=== PATIENT | female | born 1995 | race Caucasian/White ===

== ENCOUNTER 2017-01-27 21:30 | Inpatient (IN) | payer SELFPAY ==
[~2017-01-27] VITALS: Ht 165.1 cm; Wt 89.8 kg
[2017-01-27 21:38] VITALS: BP 150/90
--- NOTE | 2017-01-27 21:45 | NUR ---
PT TAKEN TO BED 8
[2017-01-27 22:05] LABS: BASOPHILS # (AUTO) 0.3 K/uL (0.00-0.22); BASOPHILS % (AUTO) 3.9 % (0.0-2.0); EOSINOPHILS # (AUTO) 0.1 K/uL (0-0.4); HEMOGLOBIN 13.7 g/dL (12.0-16.0); LYMPHOCYTES # (AUTO) 2.3 K/uL (2.5-16.5); LYMPHOCYTES % (AUTO) 32.3 % (20.5-51.1); MEAN CORPUSCULAR HEMOGLOBIN 30 pg (27-31); MEAN CORPUSCULAR HGB CONC 33 g/dL (33-37); MEAN CORPUSCULAR VOLUME 91 fL (80-94); MONOCYTES # (AUTO) 0.3 K/uL (0.8-1.0); MONOCYTES % (AUTO) 4.9 % (1.7-9.3); NEUTROPHILS % (AUTO) 56.9 % (42.2-75.2); PLATELET COUNT (AUTO) 290 K/uL (140-450); RED CELL DISTRIBUTION WIDTH 12.2 % (11.6-13.7)
--- NOTE | 2017-01-27 22:10 | NUR ---
21 YO FEMALE PATIENT PRESENTS TO ED WITH C/O SUICIDAL THOUGHTS. PT STATES HAS HAD SUICIDAL THOUGHTS FOR 1 WEEK . C/O N/V AND HEAD ACHE; SKIN IS PINK/WARM/DRY; AAOX4 WITH EVEN AND STEADY GAIT; LUNGS CLEAR BL; HR EVEN AND REGULAR; PATIENT STATES PAIN OF 8/10 AT THIS TIME; VSS; PATIENT POSITIONED FOR COMFORT; HOB ELEVATED; BEDRAILS UP X2; BED DOWN. SPOUSE AT BEDSIDE. ER MD MADE AWARE OF PT STATUS.
[2017-01-27 22:15] LABS: ANION GAP 14.1 (8-16); CALCIUM 8.3 mg/dL (8.5-10.1); CARBON DIOXIDE 26.5 mmol/L (21-32); CHLORIDE 104 mmol/L (98-107); CREATININE 0.7 mg/dL (0.6-1.3); GFR ARICAN-AMERICAN 133 mL/min (>90); GFR NON ARICAN-AMERICAN 110 mL/min (>90); GLUCOSE 76 mg/dL (74-106); POTASSIUM 3.6 mmol/L (3.5-5.1); SODIUM SERUM 141 mmol/L (136-145); UREA NITROGEN, BLOOD 11 mg/dL (7-18)
[2017-01-27 22:20] LABS: ALANINE AMINOTRANSFERASE 24 U/L (12-78); ALBUMIN 3.5 g/dL (3.4-5.0); ALCOHOL, BLOOD < 3 mg/dL (<3); ALKALINE PHOSPHATASE 64 U/L (46-116); ASPARTATE AMINOTRANSFERASE 18 U/L (15-37); TOTAL BILIRUBIN 0.3 mg/dL (0.0-1.0)
[2017-01-27 22:20] LABS: AMPHETAMINE, URINE NEG. ng/ml (NEG <=1000); BARBITURATE, URINE NEG. ng/ml (NEG <=200); BENZODIAZEPINE, URINE NEG. ng/mL (NEG <=200); CANNABINOID, URINE NEG. ng/mL (NEG <=50); COCAINE, URINE NEG. ng/mL (NEG <=300); OPIATE, URINE NEG. ng/mL (NEG <=2000); PHENCYCLIDINE SCREEN,URINE NEG. ng/mL (NEG <=25)
[2017-01-27 22:21] LABS: ACETAMINOPHEN < 0.5 ug/ml (10-30); SALICYLATE < 2.8 mg/dL (2.8-20.0)
--- NOTE | 2017-01-27 22:25 | NUR ---
[facility] AT BEDSIDE FOR 5150 EVAL
--- NOTE | 2017-01-27 22:50 | NUR ---
PT PLACED ON 5150 HOLD BY [place] [employer] OFFICER MICHAELLE
[2017-01-27] MEDS ORDERED: ACETAMINOPHEN EXTRA STRENGTH 500 MG TAB PO ONE (23:00)
[2017-01-28] MEDS ORDERED: ACETAMINOPHEN 325 MG TAB PO PRN (00:05)
[2017-01-28] MEDS ORDERED: ONDANSETRON 4 MG/2 ML VIAL IVP PRN (00:05)
[2017-01-28] MEDS ORDERED: DOCUSATE SODIUM 100 MG GELCAP PO PRN (00:05)
[2017-01-28] MEDS ORDERED: MORPHINE SULFATE 2 MG/ML SYR IVP PRN (00:05)
[2017-01-28] MEDS ORDERED: HYDROcodone/APAP 5/325 MG 1 TAB TAB PO PRN (00:05)
[2017-01-28 00:45] LABS: PARTIAL THROMBOPLASTIN TIME 27.8 secs (22-35.6); PROTHROMBIN TIME 9.2 secs (10.8-13.4)
[2017-01-28 00:48] LABS: APPEARANCE,URINE HAZY (CLEAR); BILIRUBIN,URINE NEGATIVE (NEGATIVE); BLOOD, URINE NEGATIVE (NEGATIVE); COLOR,URINE YELLOW (YELLOW); LEUKOCYTE ESTERASE ,URINE 1+ (NEGATIVE); NITRITE, URINE NEGATIVE (NEGATIVE); PROTEIN,URINE NEGATIVE (NEGATIVE); UGLUCOSE NEGATIVE (NEGATIVE); UROBILINOGEN,URINE 0.2 EU/dL (0.2 - 1)
[2017-01-28 00:51] LABS: CHOL/HDL RATIO 3.5 (1-4.5); MAGNESIUM 2.1 mg/dL (1.8-2.4); PHOSPHORUS 3.3 mg/dL (2.5-4.9)
[2017-01-28 00:56] LABS: BACTERIA,URINE 2+ /HPF (None Seen); RBC,URINE 0-5 (RARE) /HPF (0-5); SQUAMOUS EPITHELIAL CELL,UR 20-50 /LPF (0-3 (FEW))
[2017-01-28 01:05] LABS: FREE T4 (FREE THYROXINE) 0.95 ng/dL (0.76-1.46); THYROID STIMULATING HORMONE 2.79 uIU/mL (0.34-3.76)
--- NOTE | 2017-01-28 01:10 | NUR ---
Patient will be admitted to care of Dr Anderson. Admited to Med/Surg status but to ICU for Hosp convenience. Will go to room ICU 5. Belongings list completed. Report to [facility].
--- NOTE | 2017-01-28 01:15 | NUR ---
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
[2017-01-28 02:00] VITALS: BP 129/92
--- NOTE | 2017-01-28 02:10 | NUR ---
SISTER CAME WITH PT AT BEDSIDE NAME LUIZ ,EXPLAIN POLICY OFF ICU AND PHONE CONTACT TO LUIZ,
--- NOTE | 2017-01-28 03:00 | NUR ---
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
[2017-01-28 04:00] VITALS: BP 123/74
--- NOTE | 2017-01-28 04:21 | NUR ---
SLEPT AFTER ATE, CONDITION STABLE ,MONITOR ST HR 77 ,O2 SAT 97 RA.
--- NOTE | 2017-01-28 06:20 | NUR ---
AWAKE AND REPOSITION BY HERSELF, SALINE LOCK ANGIO CATH # 22 INSERTION TO LT HAND ,FLUSHING WELL CONDITION STABLE, CO OPERATED , KNOW TO USED CALL LIGHT FOR HELP O2 SAT 98 % RA.
[2017-01-28 08:00] VITALS: BP 110/42
--- NOTE | 2017-01-28 08:00 | NUR ---
AWAKE AND ALERT. DENIES ANY DISCOMFORTS. COOPERATIVE. STATES SHE STILL GETS DEPRESSED AT TIMES. DENIES WANTING TO HURT HERSELF AT THIS TIME. USED THE BEDSIDE COMMODE. GAIT STEADY. VOIDED 300 ML OF YELLOWISH URINE.
[2017-01-28] MEDS ORDERED: PANTOPRAZOLE 40 MG TABEC PO SCH (09:00)
--- NOTE | 2017-01-28 09:30 | NUR ---
MOM AND SISTER AT BEDSIDE. PT IS CHEERFUL AND CONVERSANT.
[2017-01-28] MEDS ORDERED: ESCITALOPRAM 20 MG TAB PO SCH ×2 (09:40→09:55)
[2017-01-28 12:00] VITALS: BP 122/73
--- NOTE | 2017-01-28 12:00 | NUR ---
DENIES ANY SUICIDAL IDEATIONS AT THIS TIME.
[2017-01-28 12:15] LABS: AMPHETAMINE, URINE NEG. ng/ml (NEG <=1000); BARBITURATE, URINE NEG. ng/ml (NEG <=200); BENZODIAZEPINE, URINE NEG. ng/mL (NEG <=200); CANNABINOID, URINE NEG. ng/mL (NEG <=50); COCAINE, URINE NEG. ng/mL (NEG <=300); OPIATE, URINE NEG. ng/mL (NEG <=2000); PHENCYCLIDINE SCREEN,URINE NEG. ng/mL (NEG <=25)
--- NOTE | 2017-01-28 13:00 | NUR ---
CALLED DR. JONES RE: CONSULT. LEFT MESSAGE. FACE SHEET FAXED TO HIS OFFICE.
--- NOTE | 2017-01-28 15:00 | NUR ---
BATH DONE WITH MINIMAL ASSIST. ORAL CARE DONE.
[2017-01-28 16:00] VITALS: BP 104/54
--- NOTE | 2017-01-28 17:30 | NUR ---
TEMP 99.[address] BATOOL MASON.
--- NOTE | 2017-01-28 18:06 | NUR ---
WAITING FOR PSYCH. EVAL.
--- NOTE | 2017-01-28 19:15 | NUR ---
RECEIVED REPORT FROM DAY SHIFT RN DARLENE. AWAKE, ALERT, ORIENTED, ON LAY OUT DRAFTER, VITALLY STABLE. FULL CODE. ON ROOM AIR, WITH SALINE LOCK ON LEFT HAND. DENIES SUICIDAL IDEATION. SKIN INTACT. NO SIGNS OF DISTRESS OR DISCOMFORT AT THIS TIME.
[2017-01-28] MEDS ORDERED: NITR100C7 PO (19:31)
[2017-01-28] MEDS ORDERED: LACT1.4C PO (19:32)
[2017-01-28 20:00] VITALS: BP 114/53
--- NOTE | 2017-01-28 20:00 | NUR ---
SEEN, EXAMINED AND INSTRUCTED BY DR. RENAE AT THE BEDSIDE. FOR DISCHARGE HOME, ORDERED BY DR. RENAE. DISCHARGE INSTRUCTIONS GIVEN AND INSTRUCTED, ALSO BY DR. ERNAE. TO GO HOME ASSISTED BY SISTER LUIZ. AMBULATORY, NO SIGNS OF DISTRESS OR DISCOMFORT AT THIS TIME. DISCHARGE PAPERS SIGNED BY THE PATIENT.
[2017-01-28] MEDS ORDERED: ESCI10TA PO (20:05)
--- NOTE | 2017-01-28 20:40 | NUR ---
DISCHARGED HOME WITH SISTER LUIZ ASSISTING. NO DIZZINESS, DISCOMFORT NOR DISTRESS AT THIS TIME. DENIES SUICIDAL IDEATION AT THIS MOMENT. DISCHARGE PACKET INSTRUCTED AND GIVEN.
[2017-01-29] MEDS ORDERED: ESCITALOPRAM 20 MG TAB PO SCH (09:00)
== END 2017-01-28 20:40 | disposition home or self-care (01) | DRG 884 ==
LOC: MED 21:30 → MIC 23:44
PROVIDERS: ADMIT Student in an Organized Health Care Education/Training Program; ATTEND Student in an Organized Health Care Education/Training Program
DX: F53 Mental and behavioral disorders associated with the puerperium, not elsewhere classified (principal); N39.0 Urinary tract infection, site not specified; F33.2 Major depressive disorder, recurrent severe without psychotic features; R45.851 Suicidal ideations; R45.850 Homicidal ideations; Z91.14 Patient's other noncompliance with medication regimen
CPT/HCPCS: 36415; 80053; 80305; 81001; 81025; 82150; 82248; 83036; 83690; 83735; 83880; 84100; 84439; 84443; 85025; 85610; 85730; 87081; 87086; 93005; 99285; G0480; G0482; J0696; J7030; J7060

== ENCOUNTER 2017-01-29 00:30 | Emergency (ER) | payer SELFPAY ==
[~2017-01-29] VITALS: Ht 165.1 cm; Wt 86.2 kg
[~2017-01-29 00:30] MED LIST: BD LACTINEX1.4 MG PO; LEXAPRO10 MG PO; MACROBID100 M1 PO
[2017-01-29 00:50] VITALS: BP 117/58
--- NOTE | 2017-01-29 02:32 | NUR ---
PATIENT LEFT WITHOUT BEING SEEN BY DR. LUCIO. NO FURTHER CARE PROVIDED FOR PATIENT.
--- NOTE | 2017-01-29 02:46 | NUR ---
Ivy rose in ED - 01/29/17 at 0248 by MARSHA PATIENT LEFT WITHOUT BEING SEEN BY DR. LUCIO. NO FURTHER CARE PROVIDED FOR PATIENT.
== END 2017-01-29 02:32 | disposition left against medical advice (07) ==
LOC: MED 00:30
DX: F41.9 Anxiety disorder, unspecified (principal); Z53.21 Procedure and treatment not carried out due to patient leaving prior to being seen by health care provider